=== PATIENT | female | born 1945 | race Hispanic/Latino ===

== ENCOUNTER 2017-04-25 08:02 | Inpatient (IN) | payer MEDICARE ==
[~2017-04-25] VITALS: Ht 165.1 cm; Wt 67.4 kg
[2017-04-25] MEDS ORDERED: SODIUM CHLORIDE 0.9% 1000ML 1,000 ML IV ONE (08:26)
[2017-04-25] MEDS ORDERED: ONDANSETRON HCL 4 MG/2 ML VIAL ONE (08:26)
[2017-04-25 08:28] LABS: BASOPHILS % (AUTO) 0.6 % (0.0-5.0); EOSINOPHILS % (AUTO) 0.7 % (0.0-8.0); HEMATOCRIT 44.1 % (36-48); LYMPHOCYTES % (AUTO) 18.5 % (21.0-51.0); MEAN CORPUSCULAR HEMOGLOBIN 30.7 pg (27.0-33.0); MEAN CORPUSCULAR HGB CONC 34.3 g/dL (32.0-36.0); MEAN CORPUSCULAR VOLUME 89.5 fL (79-99); MONOCYTES % (AUTO) 5.3 % (3.0-13.0); NEUTROPHILS % (AUTO) 74.9 % (40.0-77.0); NUCLEATED RED BLOOD CELLS 0.1 % (0.0-0.19); PLATELET COUNT (AUTO) 237 K/uL (130-400); RED BLOOD CELL COUNT(AUTO) 4.93 MIL/uL (4.00-5.50); RED CELL DISTRIBUTION WIDTH 13.5 % (11.0-15.5); WHITE BLOOD COUNT (AUTO) 14.3 K/uL (4.8-10.8)
[2017-04-25 09:25] LABS: ALBUMIN 3.5 g/dL (3.5-5.0); BILIRUBIN,DIRECT 0.2 mg/dL (0.0-0.3); BILIRUBIN,TOTAL 0.7 mg/dL (0.2-1.0); POTASSIUM 3.9 mmol/L (3.5-5.1); TOTAL PROTEIN, SERUM 7.2 g/dL (6.0-8.3)
[2017-04-25] MEDS ORDERED: DICYCLOMINE HCL 20 MG TAB ONE (09:26)
[2017-04-25 09:32] LABS: APPEARANCE,URINE CLEAR (CLEAR); BILIRUBIN,URINE MODERATE (NEGATIVE); COLOR,URINE YELLOW (YELLOW); GLUCOSE, URINE (UA) NEGATIVE (NEGATIVE); KETONES,URINE 5 mg/dL (NEGATIVE); LEUKOCYTE ESTERASE ,URINE NEGATIVE (NEGATIVE); NITRATE,URINE NEGATIVE (NEGATIVE); OCCULT BLOOD,URINE NEGATIVE (NEGATIVE); PROTEIN,URINE 30 (NEGATIVE)
[2017-04-25 09:39] LABS: BACTERIA,URINE Rare /HPF (None Seen); HYALINE CASTS, URINE 0-1 /LPF (0-1 /LPF); MUCUS,URINE Few LPF (None Seen); RBC,URINE None Seen /HPF (0-1); SQUAMOUS EPITHELIAL CELL,UR Few /LPF (0-2); WBC,URINE None Seen /HPF (0-1)
[2017-04-25 12:03] LABS: HEMATOCRIT 39.3 % (36-48)
[2017-04-25] MEDS ORDERED: SODIUM CHLORIDE 0.9% 1000ML 1,000 ML IV SCH (14:30)
[2017-04-25] MEDS ORDERED: ACETAMINOPHEN 325 MG TAB PO PRN ×2 (14:30)
[2017-04-25] MEDS ORDERED: LIDOCAINE HCL-MPF 1% 2ML VIAL IJ PRN (14:30)
[2017-04-25] MEDS ORDERED: POTASSIUM CHLORIDE 20 MEQ ERTAB PO PRN (14:30)
[2017-04-25] MEDS ORDERED: ONDANSETRON HCL 4 MG/2 ML VIAL IVP PRN (14:30)
[2017-04-25] MEDS ORDERED: POTASSIUM CHLORIDE 10% ELIXIR 20 MEQ/15 ML UDCUP PO PRN (14:30)
[2017-04-25] MEDS ORDERED: NAPR500T6 PO (15:55)
[2017-04-25] MEDS ORDERED: ESOM40CA54 PO (15:55)
[2017-04-25] MEDS ORDERED: PRED10TA3 PO (15:55)
[2017-04-25] MEDS ORDERED: SIMV10TA6 PO (15:55)
[2017-04-25 16:23] VITALS: BP 149/78
[2017-04-25 18:02] LABS: HEMATOCRIT 36.3 % (36-48)
[2017-04-25 19:00] VITALS: BP 157/76
[2017-04-25] MEDS: PANTOPRAZOLE SODIUM 40 MG TABLET.DR PO SCH (20:07)
[2017-04-25] MEDS: LEVOFLOXACIN 500 MG/D5W 100 ML 100 ML IV SCH (21:45)
[2017-04-25] MEDS: METRONIDAZOLE 500MG/100ML BAG 100 ML IV SCH (22:00)
[2017-04-25] MEDS ORDERED: METRONIDAZOLE 500MG/100ML BAG 100 ML ONE (22:35)
[2017-04-25] MEDS ORDERED: LEVOFLOXACIN 250 MG/D5W 50ML 50 ML ONE (22:36)
[2017-04-25 23:00] VITALS: BP 156/92
[2017-04-26] VITALS (19 sets, daily range): BP systolic 129–175; BP diastolic 64–81
[2017-04-26] MEDS: METRONIDAZOLE 500MG/100ML BAG 100 ML IV SCH ×3 (05:35→20:45)
[2017-04-26 05:51] LABS: MEAN CORPUSCULAR HEMOGLOBIN 30.4 pg (27.0-33.0); MEAN CORPUSCULAR HGB CONC 33.8 g/dL (32.0-36.0); MEAN CORPUSCULAR VOLUME 90.1 fL (79-99); PLATELET COUNT (AUTO) 187 K/uL (130-400); RED BLOOD CELL COUNT(AUTO) 3.89 MIL/uL (4.00-5.50); RED CELL DISTRIBUTION WIDTH 13.1 % (11.0-15.5); WHITE BLOOD COUNT (AUTO) 11.5 K/uL (4.8-10.8)
[2017-04-26 06:01] LABS: CREATININE 0.8 mg/dL (0.5-1.5); POTASSIUM 3.9 mmol/L (3.5-5.1)
[2017-04-26] MEDS: PANTOPRAZOLE SODIUM 40 MG TABLET.DR PO SCH (08:20)
[2017-04-26] MEDS ORDERED: MORPHINE SULFATE 2 MG/ML 1ML SYG IV PRN (08:30)
[2017-04-26] MEDS ORDERED: NITROGLYCERIN 0.4 MG SL TAB SL PRN (08:30)
[2017-04-26] MEDS ORDERED: MAG HYDROX/AL HYDROX/SIMETH ES 30 ML SUSP UDCUP PO PRN (08:30)
[2017-04-26] MEDS ORDERED: ACETAMINOPHEN 325 MG TAB PO PRN ×2 (08:30)
[2017-04-26] MEDS ORDERED: GUAIFENESIN-DM 200/20 MG 10 ML PO PRN (08:30)
[2017-04-26] MEDS ORDERED: ACETAMINOPHEN-CODEINE 300/30MG TAB PO PRN ×3 (08:30→08:45)
[2017-04-26] MEDS ORDERED: LACTULOSE 20 GM/30 ML UDCUP PO PRN (08:30)
[2017-04-26] MEDS ORDERED: MORPHINE SULFATE 4 MG/1ML SYG IV PRN (08:30)
[2017-04-26] MEDS ORDERED: MORPHINE SULFATE 4 MG/1ML SYG IVP PRN (08:45)
[2017-04-26] MEDS: MORPHINE SULFATE 2 MG/ML 1ML SYG IVP PRN (09:41)
[2017-04-26] MEDS: PREDNISONE 10 MG TABLET PO SCH (09:43)
[2017-04-26] MEDS: SODIUM CHLORIDE 0.9% 1000ML 1,000 ML IV SCH ×2 (09:44→15:32)
[2017-04-26] MEDS: ONDANSETRON HCL 4 MG/2 ML VIAL IV PRN ×2 (09:48→15:56)
[2017-04-26] MEDS ORDERED: MAGNESIUM CITRATE 296 ML SOLUTION PO SCH (11:45)
[2017-04-26] MEDS: LACTULOSE 20 GM/30 ML UDCUP PO SCH ×3 (12:22→16:46)
[2017-04-26] MEDS ORDERED: PANTOPRAZOLE 40 MG/VIAL IV SCH (12:30)
[2017-04-26 12:37] LABS: INR 0.98 (0.85-1.15); PROTHROMBIN TIME 10.3 SEC (9.6-11.6)
[2017-04-26] MEDS ORDERED: METOCLOPRAMIDE 10 MG/2 ML VIAL ONE (12:39)
[2017-04-26] MEDS ORDERED: METOCLOPRAMIDE 10 MG/2 ML VIAL IVP SCH (12:45)
[2017-04-26] MEDS: PANTOPRAZOLE SODIUM 80 MG in SODIUM CHLORIDE 0.9% 100 ML IV SCH (13:34)
[2017-04-26] MEDS ORDERED: PROPOFOL 10 MG/ML 20ML VIAL IV ONE ×2 (14:27)
[2017-04-26] MEDS ORDERED: PEG 3350/NA SULF,BICARB,CL/KCL 4000 ML SOLN PO SCH (17:00)
[2017-04-26] MEDS: BISACODYL 5 MG TABLET.DR PO SCH (18:24)
[2017-04-26] MEDS: LEVOFLOXACIN 500 MG/D5W 100 ML 100 ML IV SCH (20:45)
[2017-04-26] MEDS: ATORVASTATIN CALCIUM 10 MG TABLET PO SCH (20:45)
[2017-04-27] VITALS (19 sets, daily range): BP systolic 146–173; BP diastolic 62–87
[2017-04-27 03:53] LABS: HEMATOCRIT 32.8 % (36-48); MEAN CORPUSCULAR HEMOGLOBIN 30.6 pg (27.0-33.0); MEAN CORPUSCULAR HGB CONC 34.1 g/dL (32.0-36.0); MEAN CORPUSCULAR VOLUME 89.7 fL (79-99); PLATELET COUNT (AUTO) 160 K/uL (130-400); RED BLOOD CELL COUNT(AUTO) 3.66 MIL/uL (4.00-5.50); RED CELL DISTRIBUTION WIDTH 13.1 % (11.0-15.5)
[2017-04-27 04:08] LABS: CREATININE 0.6 mg/dL (0.5-1.5); POTASSIUM 3.2 mmol/L (3.5-5.1)
[2017-04-27] MEDS: POTASSIUM CHLORIDE 20MEQ/100ML 100 ML IV PRN ×2 (04:51→08:59)
[2017-04-27] MEDS: METRONIDAZOLE 500MG/100ML BAG 100 ML IV SCH ×2 (05:09→14:42)
[2017-04-27] MEDS: HYDRALAZINE HCL 20 MG/ML VIAL IV PRN ×2 (05:24→11:45)
[2017-04-27] MEDS: PREDNISONE 10 MG TABLET PO SCH (09:00)
[2017-04-27] MEDS: BISACODYL 5 MG TABLET.DR PO SCH (11:45)
[2017-04-27] MEDS: PANTOPRAZOLE SODIUM 80 MG in SODIUM CHLORIDE 0.9% 100 ML IV SCH (11:46)
[2017-04-27] MEDS: ONDANSETRON HCL 4 MG/2 ML VIAL IV PRN (14:47)
[2017-04-27] MEDS: MORPHINE SULFATE 2 MG/ML 1ML SYG IVP PRN (14:47)
[2017-04-27] MEDS ORDERED: LEVOFLOXACIN 500 MG TABLET PO SCH (21:00)
[2017-04-27] MEDS: METRONIDAZOLE 500 MG TABLET PO SCH (21:25)
[2017-04-27] MEDS: ATORVASTATIN CALCIUM 10 MG TABLET PO SCH (21:25)
[2017-04-27] MEDS: ACETAMINOPHEN-CODEINE 300/30MG TAB PO PRN (21:29)
[2017-04-28] VITALS: BP 152/71
[2017-04-28] MEDS: PANTOPRAZOLE SODIUM 80 MG in SODIUM CHLORIDE 0.9% 100 ML IV SCH (01:00)
[2017-04-28 04:00] VITALS: BP 146/86
[2017-04-28 05:27] LABS: HEMATOCRIT 33.3 % (36-48); MEAN CORPUSCULAR HEMOGLOBIN 30.7 pg (27.0-33.0); MEAN CORPUSCULAR HGB CONC 34.1 g/dL (32.0-36.0); PLATELET COUNT (AUTO) 183 K/uL (130-400); RED CELL DISTRIBUTION WIDTH 13.4 % (11.0-15.5); WHITE BLOOD COUNT (AUTO) 7.4 K/uL (4.8-10.8)
[2017-04-28 06:02] LABS: CREATININE 0.7 mg/dL (0.5-1.5); POTASSIUM 3.6 mmol/L (3.5-5.1)
[2017-04-28 08:00] VITALS: BP 167/81
[2017-04-28] MEDS: METRONIDAZOLE 500 MG TABLET PO SCH (08:06)
[2017-04-28] MEDS: PREDNISONE 10 MG TABLET PO SCH (08:06)
[2017-04-28] MEDS: ACETAMINOPHEN-CODEINE 300/30MG TAB PO PRN (08:07)
[2017-04-28] MEDS ORDERED: LEVO500T2 PO (08:47)
[2017-04-28] MEDS ORDERED: METR500T PO (08:47)
[2017-04-28] MEDS ORDERED: ESOM40CA54 PO (08:52)
[2017-04-28 11:45] VITALS: BP 153/67
== END 2017-04-28 12:50 | disposition home or self-care (01) | DRG 391 ==
LOC: EDH 08:02 → OBSVTOIN 12:48 → EDHIP 12:48 → 3CH 14:08
PROVIDERS: ADMIT Internal Medicine; ATTEND Internal Medicine
PROC: 0DB78ZX Excision of Stomach, Pylorus, Via Natural or Artificial Opening Endoscopic, Diagnostic (ICD-10-PCS; 2017-04-26)
PROC: 0DBP8ZX Excision of Rectum, Via Natural or Artificial Opening Endoscopic, Diagnostic (ICD-10-PCS; principal; 2017-04-27)
PROC: 0DBE8ZX Excision of Large Intestine, Via Natural or Artificial Opening Endoscopic, Diagnostic (ICD-10-PCS; 2017-04-27)
DX: K52.9 Noninfective gastroenteritis and colitis, unspecified (principal); K25.4 Chronic or unspecified gastric ulcer with hemorrhage; M06.9 Rheumatoid arthritis, unspecified; D62 Acute posthemorrhagic anemia; E78.5 Hyperlipidemia, unspecified; I10 Essential (primary) hypertension; R63.4 Abnormal weight loss; K44.9 Diaphragmatic hernia without obstruction or gangrene; F17.210 Nicotine dependence, cigarettes, uncomplicated; K64.8 Other hemorrhoids; K21.0 Gastro-esophageal reflux disease with esophagitis; L98.499 Non-pressure chronic ulcer of skin of other sites with unspecified severity; K63.5 Polyp of colon; Z98.49 Cataract extraction status, unspecified eye; Z92.241 Personal history of systemic steroid therapy; Z83.3 Family history of diabetes mellitus; Z82.49 Family history of ischemic heart disease and other diseases of the circulatory system; Z82.3 Family history of stroke; Z80.0 Family history of malignant neoplasm of digestive organs
CPT/HCPCS: 36415; 74176; 80048; 80076; 81001; 83690; 85025; 85027; 85610; 86677; 87046; 87205; 87324; 88305; 88312; C9113; J0360; J1956; J2405; J2704; J2765; J3480; J3490; J7030; J7512

== ENCOUNTER 2023-04-05 07:35 | Emergency (ER) | payer MEDICARE ==
[~2023-04-05] VITALS: Ht 157.5 cm; Wt 58.1 kg
[~2023-04-05 07:35] MED LIST: AEC81 PO; ATOR20TA65 PO; HYDR12.54 PO; LOSA50TA64 PO; PREG25 PO
[2023-04-05 08:39] LABS: RAPID GROUP A STREP negative (NEGATIVE)
[2023-04-05 08:41] LABS: SARS-CoV-2, RNA, NAAT NEGATIVE SARS CoV-2 (NEGATIVE)
[2023-04-05 08:48] LABS: INFLUENZA TYPE A Negative For Type A (NEGATIVE); INFLUENZA TYPE B Negative For Type B (NEGATIVE)
[2023-04-05 09:20] LABS: BASOPHILS # (AUTO) 0.01 K/uL (0.00-0.20); BASOPHILS % (AUTO) 0.2 % (0.0-5.0); EOSINOPHILS # (AUTO) 0.02 K/uL (0.00-0.70); EOSINOPHILS % (AUTO) 0.4 % (0.0-8.0); HEMATOCRIT 30.3 % (36-48); IMMATURE GRANULOCYTE ABSOLUTE 0.09 K/uL (0-1); LYMPHOCYTES # (AUTO) 0.4 K/uL (1.0-4.8); LYMPHOCYTES % (AUTO) 7.2 % (21.0-51.0); MEAN CORPUSCULAR HEMOGLOBIN 26.4 pg (27.0-33.0); MEAN CORPUSCULAR HGB CONC 31.4 g/dL (32.0-36.0); MEAN CORPUSCULAR VOLUME 84.2 fL (79-99); MONOCYTES # (AUTO) 0.1 K/uL (0.1-1.0); MONOCYTES % (AUTO) 1.4 % (3.0-13.0); NEUTROPHILS # (AUTO) 4.6 K/uL (1.8-7.7); NEUTROPHILS % (AUTO) 89.1 % (40.0-77.0); PLATELET COUNT (AUTO) 77 K/uL (130-400); RED CELL DISTRIBUTION WIDTH 14.6 % (11.0-15.5); WHITE BLOOD COUNT (AUTO) 5.2 K/uL (4.8-10.8)
[2023-04-05 09:29] LABS: CREATININE 1.3 mg/dL (0.5-1.5); POTASSIUM 3.3 mmol/L (3.5-5.1)
[2023-04-05 09:34] LABS: ALBUMIN 2.8 g/dL (3.5-5.0); BILIRUBIN,TOTAL 1.1 mg/dL (0.2-1.0); TOTAL PROTEIN, SERUM 6.5 g/dL (6.0-8.3)
[2023-04-05] MEDS ORDERED: METH4TAB3 PO (11:26)
[2023-04-05] MEDS ORDERED: POTASSIUM BICARB/CIT AC 25 MEQ TABLET.EFF PO ONE (11:30)
[2023-04-05 11:34] VITALS: BP 128/51; PULSE 83; RESP 15; O2SAT 94
== END 2023-04-05 12:17 | disposition home or self-care (01) ==
LOC: EDH 07:35
DX: S00.93XA Contusion of unspecified part of head, initial encounter (principal); M79.18 Myalgia, other site; E87.6 Hypokalemia; N17.9 Acute kidney failure, unspecified; I12.9 Hypertensive chronic kidney disease with stage 1 through stage 4 chronic kidney disease, or unspecified chronic kidney disease; N18.9 Chronic kidney disease, unspecified; J44.9 Chronic obstructive pulmonary disease, unspecified; M19.90 Unspecified osteoarthritis, unspecified site; Z79.82 Long term (current) use of aspirin; Z79.899 Other long term (current) drug therapy; Z88.0 Allergy status to penicillin; Z20.822 Contact with and (suspected) exposure to COVID-19; W18.39XA Other fall on same level, initial encounter; Y93.89 Activity, other specified; Y92.89 Other specified places as the place of occurrence of the external cause; Y99.8 Other external cause status
CPT/HCPCS: 36415; 70450; 72125; 80053; 85025; 87635; 87804; 87880